=== PATIENT | male | born 2000 | race Caucasian/White ===

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

== ENCOUNTER 2019-03-05 23:05 | Emergency (ER) | payer OTHER ==
[2019-03-05 23:10] VITALS: RESP 18
--- NOTE | 2019-03-05 23:38 | ED ---
General Adult HPI - General Chief complaint: Upper Respiratory Infection Stated complaint: Coughing blood Time Seen by Provider: 03/05/19 23:15 Source: patient, RN notes reviewed, old records reviewed Mode of arrival: ambulatory Limitations: no limitations - History of Present Illness Initial comments: 18-year-old male patient passed no history of GERD presented with chief complaint of cough, coughing up small amount of blood-streaked sputum. Patient was that he has been sick for approximately 5 days. Reports that he did a sore throat, cough, congestion. Patient was seen by urgent care approximately 3 days ago test for influenza, strep, mononucleosis all which are negative. Patient reports that last 2 days the cough has gotten worse. Reports that he is at a small amount of blood-streaked sputum. Denies any shortness of breath or any other pain with exception of throat pain. Denies other complaints. Systemic: Pt denies fatigue, fever/chills, rash. Pt denies weakness, night sweats, weight loss. Neuro: Pt denies headache, visual disturbances, syncope or pre-syncope. HEENT: Pt denies ocular discharge or irritation, otalgia, rhinorrhea, pharyngitis or notable lymphadenopathy. Cardiopulmonary: Pt denies chest pain, SOB, heart palpitations, dyspnea on exertion. Abdominal/GI: Pt denies abdominal pain, n/v/d. : Pt denies dysuria, burning w/ urination, frequency/urgency. Denies new onset urinary or bowel incontinence. MSK: Pt denies myalgia, loss of strength or function in extremities. Neuro: Pt denies new onset weakness, paresthesias. - Related Data Home Medications Medication Instructions Recorded Confirmed Pantoprazole [Protonix] 40 mg PO DAILY 11/29/18 11/29/18 Previous Rx's Medication Instructions Recorded Albuterol Inhaler [Ventolin Hfa 1 - 2 puff INHALATION Q4-6H PRN #1 03/06/19 Inhaler] inhaler methylPREDNISolone Dose Pack 4 mg PO DIRECTED #21 package 03/06/19 [Medrol Dose Pack] Allergies Allergy/AdvReac Type Severity Reaction Status Date / Time No Known Allergies Allergy Verified 03/05/19 23:09 Review of Systems ROS Statement: Those systems with pertinent positive or pertinent negative responses have been documented in the HPI. ROS Other: All systems not noted in ROS Statement are negative. Past Medical History Past Medical History: GERD/Reflux Additional Past Medical History / Comment(s): migraines History of Any Multi-Drug Resistant Organisms: None Reported Past Surgical History: No Surgical Hx Reported Past Psychological History: No Psychological Hx Reported Smoking Status: Never smoker Past Alcohol Use History: Occasional Past Drug Use History: None Reported General Exam - General Exam Comments Initial Comments: Constitutional: NAD, AOX3, Pt has pleasant affect. HEENT: NC/AT, trachea midline, neck supple, no lymphadenopathy. Posterior pharynx mildly erythematous, without exudates. External ears appear normal, without discharge. Mucous membranes moist. Eyes PERRLA, EOM intact. There is no scleral icterus. No pallor noted. Cardiopulmonary: RRR, no murmurs, rubs or gallops, no JVD noted. Lungs CTAB in anterior and posterior berry. No peripheral edema. Abdominal exam: Abdomen soft and non-distended. Abdomen non-tender to palpation in all 4 quadrants. Bowel sounds active in LLQ. No hepatosplenomegaly. No ecchymosis Neuro: CN II-XII grossly intact. No nuchal rigidity. No raccon eyes, no matute sign, no hemotympanum. No cervical spinal tenderness. MSK: No posterior calf tenderness bilaterally, homans sign negative bilaterally. Posterior tibialis and radial pulse +2 bilaterally. Sensation intact in upper and lower extremities. Full active ROM in upper and lower extremities, 5/5 stregnth. Limitations: no limitations Course Vital Signs 03/05/19 23:07 Temperature 98.2 F Pulse Rate 99 Respiratory 18 Rate Blood Pressure 146/87 O2 Sat by Pulse 99 Oximetry Medical Decision Making - Medical Decision Making 18-year-old male patient passed no history of GERD presented with chief complaint of cough, coughing up small amount of blood-streaked sputum. Patient was that he has been sick for approximately 5 days. Reports that he did a sore throat, cough, congestion. Patient was seen by urgent care approximately 3 days ago test for influenza, strep, mononucleosis all which are negative. Patient reports that last 2 days the cough has gotten worse. Reports that he is at a small amount of blood-streaked sputum. Denies any shortness of breath or any other pain with exception of throat pain. Denies other complaints. Patient vital signs are stable, afebrile. Physical exam displayed mild posterior erythema. No tonsillar exudates. Chest x-ray negative. Patient currently expressing bronchitis. Patient will be discharged with follow-up with primary care provider tomorrow. Patient prescribed albuterol inhaler to use as needed. Psoas Medrol Dosepak. Case discussed with Dr. Landry. Disposition Clinical Impression: Bronchitis Disposition: HOME SELF-CARE Condition: Stable Instructions (If sedation given, give patient instructions): Acute Bronchitis (ED) Additional Instructions: Take medication as directed. Follow-up with primary care provider tomorrow. Return to ER if condition worsens. Prescriptions: methylPREDNISolone Dose Pack [Medrol Dose Pack] 4 mg PO DIRECTED #21 package Albuterol Inhaler [Ventolin Hfa Inhaler] 1 - 2 puff INHALATION Q4-6H PRN #1 inhaler PRN Reason: Cough Is patient prescribed a controlled substance at d/c from ED?: No Referrals: Charli Garrison MD [Primary Care Provider] - 1-2 days
--- NOTE | 2019-03-05 23:55 | XR ---
EXAMINATION TYPE: XR chest 2V DATE OF EXAM: 03/05/2019 COMPARISON: NONE HISTORY: Cough TECHNIQUE: FINDINGS: Heart and mediastinum are normal. Lungs are clear. Diaphragm is normal. Bony thorax appears normal. IMPRESSION: Normal chest
[2019-03-06 00:40] VITALS: BP 114/72; PULSE 66; TEMP 97.7
== END 2019-03-06 00:43 | disposition home or self-care (01) ==
LOC: EC 23:05
DX: J40 Bronchitis, not specified as acute or chronic (principal); K21.9 Gastro-esophageal reflux disease without esophagitis; Z79.899 Other long term (current) drug therapy
CPT/HCPCS: 71046; 99284